=== PATIENT | male | born 1990 | race Caucasian/White ===

== ENCOUNTER 2017-08-17 18:20 | Emergency (ER) | payer OTHER ==
[~2017-08-17] VITALS: Ht 185.4 cm; Wt 115.2 kg
[~2017-08-17 18:20] MED LIST: BENADRYL25 MG PO; CENTRUM COMPLE1 EACH; CO Q-10100 MG; HYDROCODON-ACE1 EAC7 PO; IBUPROFEN200 M2 PO; NORCO 5-325 TA1 EACH PO
[2017-08-17] MEDS ORDERED: SERTRALINE HCL50 MG PO (18:29)
[2017-08-17] MEDS ORDERED: AMBIEN 5 MG TABL5 M1 PO (18:29)
[2017-08-17 19:06] LABS: ABSOLUTE LYMPHOCYTES 1.6 thou/uL (0.8-5.3); ABSOLUTE MONOCYTES 0.3 thou/uL (0.0-1.2); ABSOLUTE NEUTROPHILS 2.6 thou/uL (1.6-8.1); BASOPHILS 0.8 %; EOSINOPHILS 0.8 %; HEMATOCRIT 43.9 % (42.0-52.0); HEMOGLOBIN 14.9 gm/dL (14.0-18.0); LYMPHOCYTES 34.1 %; MCH 29.4 pg (26.0-34.0); MCHC 33.9 g/dL (28.0-37.0); MCV 86.8 fL (80.0-100.0); MONOCYTES 7.6 %; MPV 7.7 fl. (7.2-11.1); NUCLEATED RBCS 0 /100WBC; PLATELET COUNT* 270 thou/uL (150-400); POLYS 56.7 %; RBC 5.06 mil/uL (4.50-6.00); RDW-CV 12.9 % (10.5-14.5); WBC 4.6 thou/uL (4.0-11.0)
[2017-08-17 19:12] LABS: CALCIUM 9.3 mg/dL (8.5-10.1); CREATININE 0.9 mg/dL (0.6-1.3); POTASSIUM 4.1 mmol/L (3.5-5.1)
[2017-08-17 19:16] LABS: TOTAL BILIRUBIN 0.5 mg/dL (<0.1-1.0); TOTAL PROTEIN 7.7 g/dL (6.4-8.2)
[2017-08-17 20:29] LABS: URINE BILIRUBIN NEGATIVE (Negative); URINE BLOOD NEGATIVE (Negative); URINE CLARITY CLEAR; URINE COLOR YELLOW; URINE GLUCOSE-RANDOM NEGATIVE (Negative); URINE KETONES NEGATIVE (Negative); URINE LEUKOCYTES-REFLEX NEGATIVE (Negative); URINE NITRITE-REFLEX NEGATIVE (Negative); URINE PROTEIN NEGATIVE (Negative); URINE SPECIFIC GRAVITY 1.015 (1.005-1.030); URINE UROBILINOGEN 0.2 E.U./dl (0.2-1.0)
[2017-08-17 21:01] LABS: BE -0.1 mmol/L (-2 to +3); HCO3 24.1 mmol/L (22.0-26.0); PO2 VENOUS 86.2 mmHg (35.0-45.0)
[2017-08-17 21:26] VITALS: BP 113/78
== END 2017-08-17 21:27 | disposition home or self-care (01) ==
LOC: M.ERS 18:20
PROVIDERS: Nurse Practitioner Family
DX: T58.8X1A Toxic effect of carbon monoxide from other source, accidental (unintentional), initial encounter (principal); Y92.89 Other specified places as the place of occurrence of the external cause